=== PATIENT | male | born 1995 | race Caucasian/White ===

== ENCOUNTER 2019-01-14 12:42 | Emergency (ER) | payer OTHER ==
[~2019-01-14] VITALS: Ht 170.2 cm; Wt 72.6 kg
[~2019-01-14 12:42] MED LIST: DOXYCYCLINE 10100 MG PO; FLOMAX0.4 MG PO; HYDROCODONE-AP1 EAC6 PO; IBUPROFEN 800800 M1 PO; VALIUM5 MG PO; ZOFRAN ODT4 MG PO
[2019-01-14] MEDS ORDERED: IBUPROFEN 800800 M1 PO (13:59)
[2019-01-14] MEDS ORDERED: NORCO 5-325 TA1 EACH PO (13:59)
[2019-01-14 14:20] VITALS: BP 124/88
== END 2019-01-14 14:22 | disposition home or self-care (01) ==
LOC: M.ERS 12:42
DX: S43.101A Unspecified dislocation of right acromioclavicular joint, initial encounter (principal); S20.411A Abrasion of right back wall of thorax, initial encounter; S50.311A Abrasion of right elbow, initial encounter; V86.99XA Unspecified occupant of other special all-terrain or other off-road motor vehicle injured in nontraffic accident, initial encounter; Y93.89 Activity, other specified; Y92.89 Other specified places as the place of occurrence of the external cause; Y99.8 Other external cause status